=== PATIENT | female | born 1950 | race Caucasian/White ===

== ENCOUNTER 2019-10-03 08:03 | Outpatient (CLI) | payer MEDICARE, BC ==
--- NOTE | 2019-10-03 09:06 | RAD ---
LUMBAR SPINE SERIES 4 VIEWS: HISTORY: Back and left leg pain. FINDINGS: The vertebral bodies are normal in height. There are severe arthritic changes in the spine. There i s pronounced disk narrowing at L3-4, L4-5, and L5-S1. There is spondylolisthesis of L3 on L4 of appr oximately 8 mm. Minimal retrolisthesis of L2 on L3. Minimal spondylolisthesis of L5 on S1. There a re severe degenerative facet changes present. I do not appreciate any abnormal motion on the flexion or extension views. Pedicles appear intact. IMPRESSION: Severe arthritic changes of the spine. POS: TPC
--- NOTE | 2019-10-03 10:23 | MRI ---
LUMBAR SPINE MRI WITH AND WITHOUT CONTRAST: HISTORY: Lumbar radiculopathy. Low back pain. COMPARISON: None. FINDINGS: Heterogeneous marrow signal intensity of the lumbar spine due to senescent change. There is a combina tion of type I and type II Modic change at L3-L4 disc space. Additional type I Modic change at L4-L5 and L5-S1. Appropriate signal intensity of the visualized paraspinal muscles. Appropriate signal intensity of th e visualized solid organs. Exophytic 2.3 x 1.6 cm cyst in the left renal cortex. Conus medullaris terminates at the T12-L1 disc space. Small hemangioma in the right aspect of the T12 vertebral body is noted. Postcontrast images do not demonstrate any abnormal enhancement with regards to the vertebral bodies. There is no abnormal enhancement within the thecal sac, including the cauda equina and conus medullaris. T10-T11: Desiccation with severe loss of disc space height. Broad-based disc bulge, posterior element hypertrophy result in moderate central canal stenosis. Moderate to severe bilateral neural foraminal narrowing. T11-T12: Desiccation with moderate to severe loss of disc space height. Broad-based disc bulge result s in mild central canal stenosis. Mild bilateral foraminal narrowing. T12-L1: Disc desiccation with mild loss of disc space height. No significant posterior disc abnormali ty. No significant central canal stenosis. Bilaterally, the neural foramina are patent. L1-L2: Disc desiccation with mild loss of disc space height. Broad-based disc bulge abuts the thecal sac. Disc material does contact but does not obscure either traversing L2 nerve root. No significant central canal stenosis. Mild bilateral neural foraminal narrowing. L2-L3: Disc desiccation with mild loss of disc space height. Broad-based disc bulge, ligament flavum thickening and facet hypertrophy result in mild central canal stenosis. Mild to moderate bilateral neural foraminal narrowing. L3-L4: Desiccation with moderate loss of disc space height. There is a broad-based disc bulge along w ith bilateral facet hypertrophy. There is severe central canal stenosis. There is a right hemilaminotomy defect. Postcontrast images demonstrate extensive enhancement along the operative site . There may be a component of enhancement in the right subarticular zone. There is obscuration of bilateral traversing L4 nerve roots. Moderate to severe right and severe left neural foraminal narrow ing. 4.2 mm of anterolisthesis of L3 upon L4. L4-L5: Desiccation with severe loss of disc space height. There is a broad-based disc bulge with a le ft subarticular disc herniation. Disc material also encroaches upon the right subarticular zone. There is contact upon the traversing right L5 nerve root without significant obscuration. There is ma ss effect and obscuration of the traversing left L5 nerve root. Overall there is moderate stenosis of the thecal sac. There is enhancing scar tissue at the left hemilaminectomy defect site. Enhancing scar tissue also extends into the left subarticular zone. Moderate to severe bilateral neural foraminal narrowing. L5-S1: Disc desiccation with severe loss of disc space height. Broad-based disc bulge abuts the left subarticular zone. Mass effect and partial obscuration of traversing left S1 nerve root. No significant narrowing of the right subareolar zone. There is bilateral facet hypertrophy. Moderate to severe bilateral foraminal narrowing. IMPRESSION: Extensive postoperative and degenerative changes of the lumbar spine as described above. Transcribed Date/Time: 10/03/2019 10:37 AM
[2019-10-03] MEDS ORDERED: Magnevist 469MG/ML 20 ML VIAL ONE (16:40)
== END 2019-10-03 08:04 | disposition home or self-care (01) ==
LOC: TBSIIMAG 08:03
PROVIDERS: ATTEND Physician Assistant Surgical
DX: M47.26 Other spondylosis with radiculopathy, lumbar region (principal); M46.96 Unspecified inflammatory spondylopathy, lumbar region; Z98.890 Other specified postprocedural states
CPT/HCPCS: 72110; 72158; 82565; A9579